=== PATIENT | female | born 1985 | race Caucasian/White ===

== ENCOUNTER → 2017-04-21 | Day surgery (SDC) | payer OTHER ==
[~2017-04-21] VITALS: Ht 167.6 cm; Wt 84.7 kg
[2017-04-21] VITALS (9 sets, daily range): BP systolic 107–124; BP diastolic 63–81; PULSE 62–92; RESP 11–18; O2SAT 96–100
[~2017-04-21] MED LIST: Atropine 0.4 mg/mL Inj IVPUSH PRN; Dexamethasone 4 mg/mL Inj IVPUSH PRN; EPHEDrine Sulfate 50 mg/mL Inj IVPUSH PRN; HYDR-4003 PO; HYDROmorphone 1 mg/mL Inj IVPUSH PRN; Labetalol 5 mg/mL 20 mL Inj IV PRN; Lactated Ringer's 1,000 ML IV SCH; Lactated Ringer's 500 ML IV PRN; Lidocaine 1%/Epi 1:100,000 30 mL MDV INFILTRATE ONE; MULT-1018 PO; MetoCLOpramide 5 mg/mL 2 mL Inj IVPUSH PRN; Ondansetron 2 mg/mL 2 mL Inj IVPUSH PRN; Ondansetron 2 mg/mL 2 mL Inj ONE; Phenylephrine 10,000 mCg/mL Inj IVPUSH PRN; Propofol 10,000 mCg/mL 20 mL Inj ONE; fentaNYL-PF 50 mCg/mL 2 mL Inj IVPUSH PRN; fentaNYL-PF 50 mCg/mL 2 mL Inj ONE; hydrALAZINE 20 mg/mL Inj IVPUSH PRN; oxyCODONE-Acetamin 5-325 mg Tablet PO PRN
[2017-04-21] MEDS: Lactated Ringer's 1,000 ML IV SCH ×2 (05:29→08:05)
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
--- NOTE | 2017-04-21 09:07 | PCM.ANEP1 ---
Post Anesthesia PACU Phase 1 Assessment Vital Signs Vital Signs Date Time Temp Pulse Resp B/P Pulse Ox O2 Delivery O2 Flow Rate FiO2 04/21/17 09:00 36.8 74 13 108/72 97 Room Air 04/21/17 08:50 81 13 112/69 97 Room Air 04/21/17 08:40 87 11 112/63 97 Room Air 04/21/17 08:35 91 12 114/68 97 Room Air 04/21/17 08:30 36.7 92 11 107/63 97 Room Air 04/21/17 08:25 91 13 110/64 96 Room Air 04/21/17 08:22 36.7 86 11 118/65 97 Room Air 04/21/17 06:01 36.6 79 16 124/81 98 Room Air Anesthetic Administered: GA Level of Alertness: Awake, talking NEWBERRY's with Equal Strength: Yes Pain: Yes Nausea or Vomiting: No CV Function & Hydration Stable: Yes Airway Device: Lungs: Clear to Auscultation Dermatome Level: Full Sensation PACU Phase 2 Assessment Complications: No Follow up Care: No Patient Instructions Provided: N/A Jovanni Nicole MD Apr 21, 2017 09:07
--- NOTE | 2017-04-21 20:30 | OP ---
[address] [address] OPERATIVE REPORT PATIENT: VIDA MONTERO : 1985 MR#: [id number] ADMIT: 04/21/2017 JOB ID: [id number] DATE OF SURGERY: 04/21/2017 SURGEON: Lex Keller MD ANESTHESIA: General. PREOPERATIVE DIAGNOSIS(ES): Moderate cervical dysplasia. POSTOPERATIVE DIAGNOSIS(ES): Moderate cervical dysplasia. PROCEDURE PERFORMED: 1. Loop electrosurgical excision procedure (LEEP). 2. Endocervical curettage. INDICATIONS FOR SURGERY: This patient was found on colposcopically directed biopsies, by another physician, to have moderate cervical dysplasia of the ectocervix. She also was noted to have mild cervical dysplasia on endocervical curetting, although upon my colposcopic assessment, canal appeared to be free of disease. The high-grade ectocervical dysplasia as well as the positive endocervical curetting, however, certainly warrants additional cervical evaluation and treatment and LEEP has been planned. Hospital-based procedure was scheduled due to the patient's high anxiety within the office procedure as well as some difficulty visualizing in light of redundant vaginal way. Thus, hospital-based procedure under anesthesia, we keep the patient comfortable while allowing the best diagnostic and therapeutic results from the needed LEEP to ensure removal of high-grade dysplasia as well as for full assessment of the endocervical canal distally. FINDINGS AT SURGERY: Upon Lugol's application, nonstaining cervical epithelial areas were noted, consistent with what was noted upon colposcopic evaluation in my office. Appropriately sized loop removed the nonstaining areas and electrocauterization treated the margins of the LEEP bed to ensure adequate treatment. Note essentially no bleeding during the case (scant only) and none at procedure's close. Appropriately sized cone of tissue had been removed, as well as endocervix well sampled. It certainly is anticipated that the patient will recover well during the postoperative timeframe. We will follow up pathology report regarding the LEEP/ectocervical with distal canal specimen as well as endocervical curettings to help determine whether any additional diagnostic or therapeutic intervention is needed as well as to help define followup plan. PROCEDURE IN DETAIL: The patient was placed in the supine position on the operating table and general anesthesia was activated. She was then carefully repositioned into the low dorsal lithotomy position and prepped and draped in the usual sterile manner. Appropriate time-out was taken followed by placement of a bivalve speculum. Lugol's solution was then applied to the cervix and nonstaining areas were visualized. An appropriately sized loop was then selected. Lidocaine with epinephrine solution was then injected into the cervix circumferentially and LEEP procedure was then accomplished with removal of a cone of tissue. Cautery was applied to the LEEP bed where there was any suggestion of bleeding, although minimal. Electrocauterization was also accomplished along the edge of the LEEP bed to ensure adequacy of treatment at the outer margin. Endocervical curettage was then accomplished. At this point, the cervix was inspected for a couple of minutes and there was no bleeding occurring. Monsel's solution was not utilized in light of the patient's prior reaction, as reported by another physician. Procedures were thus all complete, speculum was removed and instrument/sponge counts were all found to be correct. Note that (i.e. removal of visibly abnormal epithelium as well as assessment of the endocervical canal by combination of LEEP specimen as well as the endocervical curettage). There was no bleeding at procedure's close. ESTIMATED BLOOD LOSS: Scant. COMPLICATIONS: None. PROGNOSIS: Good for surgical recovery.
--- NOTE | 2017-04-27 10:35 | PATH ---
SURGICAL PATHOLOGY Attending Physician:Lex Keller M.D CASE STATUS: Signed Out PATIENT NAME: VIDA MONTERO PID: [id number] : 1985 DATE COLLECTED:04/21/2017 19:43 SPECIMEN: 1: Cervix, Leep 2: Endocervix, Curettage CLINICAL HISTORY: KEMI-2 1). CERVICAL LEEP 2). ENDOCERVICAL CURETTING FINAL DIAGNOSIS: 1. Cervix, LEEP: Squamocolumnar junctional mucosa with high-grade squamous intraepithelial lesion (moderate dysplasia/KEMI-2); please see comment. Negative for endocervical dysplasia and invasive malignancy. No squamous dysplasia is identified at the cauterized margins. 2. Endocervix, Curettage: Endocervical mucosa with no diagnostic abnormality. Negative for dysplasia and malignancy. ICD10: N87.1 NOTE: 1: The cervical LEEP contains moderate squamous dysplasia identified at the cervical transformation zone and involving about 30% of the total sampled transformation zone. The squamous dysplasia is not identified at any of the cauterized margins. No endocervical dysplasia or invasive malignancy is present. GROSS DESCRIPTION: The specimen is received in two formalin filled containers labeled with the patient's name. 1). The specimen is labeled "cervical LEEP" and consists of a 1.8 x 1.5 x 0.6 CM portion of tissue. The specimen has a 0.8 CM in length centrally located opening. The specimen is inked blue. Radially sectioned into 15 pieces and entirely submitted in cassettes 1A-1D. 2). The specimen is labeled "endocervical curetting" and consists of approximately a 0.25 cc aggregate of mucoid material and blood which is entirely submitted in cassette 2A. 04/21/2017DC ICD-9 CODES: CPT CODES: 1: 30371 2: 78601 Electronically Signed Out Chance Pennington MD, PhD [facility] Pathology [facility], [place] [address] Technical component performed at [facility], [facility], [facility] [address], [place], [address]
== END | disposition home or self-care (01) ==
LOC: SAS 05:39
PROVIDERS: ATTEND Obstetrics & Gynecology
DX: N87.1 Moderate cervical dysplasia (principal)
CPT/HCPCS: 57522; J1885; J2250; J2405; J2704; J3010; J7120